=== PATIENT | male | born 1980 | race Two or more races ===

== ENCOUNTER 2018-05-09 17:02 | Inpatient (IN) | payer MEDICARE ==
[~2018-05-09] VITALS: Ht 172.7 cm; Wt 88.1 kg
[2018-05-09] MEDS ORDERED: ZOLPIDEM TARTRATE 10 MG TABLET PO PRN (23:30)
[2018-05-09] MEDS ORDERED: LORazepam 2 MG TABLET PO PRN (23:30)
[2018-05-09] MEDS ORDERED: HALOPERIDOL 5 MG TABLET PO PRN (23:30)
[2018-05-10 00:12] VITALS: BP 127/76
[2018-05-10] MEDS ORDERED: MAG HYDROX/AL HYDROX/SIMETH ES 30 ML SUSPENSION UDCUP PO PRN (06:30)
[2018-05-10] MEDS ORDERED: ACETAMINOPHEN 325 MG TABLET PO PRN (06:30)
[2018-05-10] MEDS ORDERED: ONDANSETRON HCL 4 MG TABLET PO PRN (06:30)
[2018-05-10] MEDS ORDERED: PETROLATUM,WHITE 28 GM JELLY TP PRN (06:30)
[2018-05-10] MEDS ORDERED: MAGNESIUM HYDROXIDE SUSPENSION 30 ML UDCUP PO PRN (06:30)
[2018-05-10] MEDS ORDERED: IBUPROFEN 400 MG TABLET PO PRN (06:30)
[2018-05-10] MEDS ORDERED: CloNIDine HCL 0.1 MG TABLET PO PRN (06:30)
[2018-05-10] MEDS ORDERED: LOPERAMIDE HCL 2 MG CAPSULE PO PRN (06:30)
[2018-05-10] MEDS ORDERED: DOCUSATE SODIUM 100 MG CAPSULE PO PRN (06:30)
[2018-05-10] MEDS ORDERED: GuaiFENesin/D-METHORPHAN [SUGAR-FREE] 200-20MG/10 ML SYRUP UDCUP PO PRN (06:30)
[2018-05-10] MEDS ORDERED: ALBUTEROL SULFATE HFA 90 MCG/PUFF 8 GM INHALER IH PRN (06:30)
[2018-05-10] MEDS ORDERED: NICOTINE 14 MG/24 HOUR PATCH TD PRN (06:30)
[2018-05-10] MEDS: OLANZapine 5 MG TABLET PO SCH ×2 (13:43→20:41)
[2018-05-10 16:03] VITALS: BP 101/61
[2018-05-11 00:45] VITALS: BP 111/78
[2018-05-11 08:25] VITALS: BP 117/70
[2018-05-11] MEDS: OLANZapine 5 MG TABLET PO SCH ×2 (08:41→20:33)
[2018-05-11 16:10] VITALS: BP 109/73
[2018-05-12] MEDS: OLANZapine 5 MG TABLET PO SCH ×2 (08:38→20:30)
[2018-05-12 16:43] VITALS: BP 112/86
[2018-05-13 00:14] VITALS: BP 101/62
[2018-05-13] MEDS: OLANZapine 5 MG TABLET PO SCH (08:37)
[2018-05-13] MEDS ORDERED: OLAN5TAB27 PO (11:45)
== END 2018-05-13 15:35 | disposition home or self-care (01) | DRG 885 ==
LOC: B2X 23:21
DX: F20.0 Paranoid schizophrenia (principal); F12.10 Cannabis abuse, uncomplicated; F10.10 Alcohol abuse, uncomplicated; H54.61 Unqualified visual loss, right eye, normal vision left eye; K21.9 Gastro-esophageal reflux disease without esophagitis; Z59.0 Homelessness